=== PATIENT | female | born 1955 ===

== ENCOUNTER 2024-07-17 05:00 | Day surgery (SDC) | payer OTHER ==
[2024-07-11 12:35] VITALS: BP 160/79
[~2024-07-17] VITALS: Ht 160 cm; Wt 60.8 kg
[~2024-07-17 05:00] MED LIST: ARIMIDEX; ASA81 MG PO; CRESTOR40 MG; GLIPIZIDE XL10 MG PO; LOSARTAN; LOSARTAN POTASS25 MG PO; NEURONTIN300 MG PO; NORVASC5 MG PO; PROTONIX40 MG PO; SYNTHROID50 MCG PO; TOPROL XL100 M1 PO
[2024-07-17] MEDS ORDERED: BUPIVACAINE HCL 30 ML VIAL IJ ONE (08:30)
[2024-07-17] MEDS ORDERED: METRONIDAZOLE/SODIUM CHLORIDE 500 MG/100 ML PIGGYBACK IV ONE (08:30)
[2024-07-17] MEDS ORDERED: levoFLOXacin IN DEXTROSE 5 % 5 MG/ML PIGGYBAG IV ONE (08:30)
[2024-07-17] MEDS ORDERED: LIDOCAINE HCL 1%/EPINEPHRINE 20ML VIAL IJ ONE (08:30)
[2024-07-17] MEDS ORDERED: CHLORHEXIDINE GLUCONATE 120 ML BOTTLE TOP ONE (10:00)
== END 2024-07-17 13:00 | disposition home or self-care (01) ==
LOC: CIR.AMB 05:00
PROVIDERS: ATTEND Colon & Rectal Surgery
DX: R15.9 Full incontinence of feces (principal); Z91.041 Radiographic dye allergy status; Z88.0 Allergy status to penicillin; Z88.5 Allergy status to narcotic agent
CPT/HCPCS: 64581; 95971; C1778

== ENCOUNTER 2024-07-31 05:00 | Day surgery (SDC) | payer OTHER ==
[2024-07-31] MEDS ORDERED: ONDANSETRON HCL 2 MG/ML VIAL IV ONE (10:30)
== END 2024-07-31 11:25 | disposition home or self-care (01) ==
LOC: CIR.AMB 05:00
PROVIDERS: ATTEND Colon & Rectal Surgery
DX: R15.9 Full incontinence of feces (principal); Z88.6 Allergy status to analgesic agent; I10 Essential (primary) hypertension; E11.9 Type 2 diabetes mellitus without complications; E03.8 Other specified hypothyroidism
CPT/HCPCS: 64590; 95971; C1767